=== PATIENT | female | born 1960 | race Caucasian/White ===

== ENCOUNTER 2023-10-31 12:51 | Outpatient (REF) | payer MEDICARE, SELFPAY ==
[2023-10-31 13:53] LABS: C Reactive Protein 0.59 mg/dL (< or = 0.50)
[2023-10-31 14:16] LABS: Erythrocyte Sedimentation Rate 18 MM/HR (0-20)
== END 2023-10-31 12:52 | disposition home or self-care (01) ==
LOC: HO.LAB 12:51
PROVIDERS: Visit Provider Registered Nurse
DX: G44.209 Tension-type headache, unspecified, not intractable (principal)
CPT/HCPCS: 36415; 85652; 86140

== ENCOUNTER 2024-10-16 11:04 | Outpatient (AMB) | payer MEDICARE, SELFPAY ==
--- OUTSIDE RECORDS SUMMARY | 2024-10-16 12:04 | XMS_ITS | Clinical Summary ---
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 0 10/25/2019 Active albuterol (PROVENTIL) (2.5 MG/3ML) 0.083% nebulizer solution Inhale 3 mL (2.5 mg total) into the lungs. 0 05/17/2022 Active amitriptyline (ELAVIL) tablet 25 mg 0 03/24/2021 Active amLODIPine (NORVASC) tablet 5 mg Take 1 tablet (5 mg total) by mouth daily. for 30 days 0 08/15/2022 Active aspirin 81 MG EC tablet Take 1 tablet (81 mg total) by mouth. 0 10/26/2019 Active atorvastatin (LIPITOR) tablet 40 mg Take 1 tablet (40 mg total) by mouth daily. 0 08/15/2022 Active buPROPion (WELLBUTRIN SR) 150 MG 12 hr tablet Take 1 tablet (150 mg total) by mouth 2 (two) times a day. 0 05/17/2022 Active cholestyramine (QUESTRAN) 4 g packet MX AND DRK 1 PACKET PO TID WC 0 07/15/2019 Active cyanocobalamin 1000 MCG tablet Take 1 tablet (1,000 mcg total) by mouth. 0 10/26/2019 Active Flovent HFA 220 MCG/ACT inhaler 1 puff 2 (two) times a day. 0 11/02/2022 Active gabapentin (NEURONTIN) 100 MG capsule Take 1 capsule (100 mg total) by mouth 3 (three) times a day. 0 10/25/2019 Active meclizine (ANTIVERT) 25 MG tablet Take 1 tablet (25 mg total) by mouth. 0 12/12/2013 Active meloxicam (MOBIC) 7.5 MG tablet 0 11/09/2022 Active omeprazole (PriLOSEC) 40 MG capsule Take 1 capsule (40 mg total) by mouth daily. 0 08/15/2022 Active oxyCODONE HCl (ROXICODONE) 10 MG TABS Take 1 tablet (10 mg total) by mouth every 4 (four) hours as needed. 0 10/25/2019 Active TRAZODONE HCL PO Take 50 mg by mouth. 0 11/03/2020 Active varenicline (Chantix Starting Month ) 0.5 MG X 11 & 1 MG X 42 tablet Take 0.5 mg by mouth. 0 05/17/2022 Active Active Problems Problem Noted Date Diagnosed Date Osteoporosis 11/09/2022 Social History Tobacco Use Types Packs/Day Years Used Date Smoking Tobacco: Never Assessed Sex and Gender Information Value Date Recorded Sex Assigned at Female 11/03/2022 2:55 PM EDT Gender Identity Not on file Sexual Orientation Not on file Job Start Date Occupation Industry Not on file Not on file Not on file Last Filed Vital Signs Vital Sign Reading Time Taken Comments Blood Pressure 124/70 11/10/2022 2:04 PM EDT Pulse 90 11/10/2022 2:04 PM EDT Temperature 36 C (96.8 F) 11/10/2022 2:04 PM EDT Respiratory Rate - - Oxygen Saturation 98% 11/10/2022 2:04 PM EDT Inhaled Oxygen Concentration - - Weight 71 kg (156 lb 9.6 oz) 11/10/2022 2:04 PM EDT Height - - Body Mass Index - - Plan of Treatment Health Maintenance Due Date Last Done Comments Hepatitis C Screening 1959 Depression Screening 1971 Preventative Health Evaluation 1977 Cervical Cancer Screening (Pap Smear) 1980 Colon Cancer Screening (Colonoscopy) 2004 Breast Cancer Screening (Mammogram) 2009 Shingrix-Zoster Vaccine (1 o f 2) 2009 COVID-19 Vaccine (4 - 2023-2 5 season) 2023 01/06/2021, 06/07/2020, 05/17/2020 DTap / Tdap / Td (2 - Td or Tdap) 11/19/2023 11/18/2013 Fall Risk Assessment 2024 Osteoporosis Screening (DEXA Scan) 2024 Pneumococcal Vaccine (2 of 2 - PCV) 2024 11/18/2013 Influenza Vaccine (#1) 2024 RSV Adult > 60+ Yrs or (1 - 1-dose 75+ series) 2034 Pneumococcal Vaccine Aged Out 11/18/2013 No long er eligible based on patient's age to complete this topic Hepatitis B Vaccines Aged Out No long er eligible based on patient's age to complete this topic RSV Ped < 20 months Aged Out No longe r eligible based on patient's age to complete this topic 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
--- OUTSIDE RECORDS SUMMARY | 2024-10-16 12:04 | XMS_ITS | Clinical Summary ---
Author Organization [place] [id number] [facility], [facility] Building Address [address] [place], [place] [address], [place] [address] Phone Care Team Providers Care Graphic Design Assistant Name Role Phone Aashish Fishman MD Primary Care Provider Allergies Active Allergy Reactions Criticality Noted Date Comments Bee Venom Protein (Honey Bee) Anaphylaxis,Swelling High 03/11/2019 Moxifloxacin Swelling High 09/27/2013 Swelling Medications meclizine (ANTIVERT) 25 mg tablet Take 1 tablet (25 mg total) by mouth 3 (three) times a day if needed for dizziness. 12/13/19 14 Active meloxicam (MOBIC) 7.5 mg tablet Take 1 tablet (7.5 mg total) by mouth 1 (one) time each day. 11/10/19 23 Active omeprazole (PriLOSEC) [address] capsule Take 1 capsule (40 mg total) by mouth 1 (one) time each day. 08/16/19 23 Active zoledronic acid (RECLAST) 5 mg/100 mL piggyback Infuse 100 mL (5 mg total) into a venous catheter. 08/19/19 23 Active gabapentin (NEURONTIN) 100 mg capsule Take 1 capsule (100 mg total) by mouth 3 (three) times a day. 10/25/19 20 Active aspirin 81 mg chewable tablet GNP Adult Aspirin Low Strength 81 MG chewable tablet 11/07/19 21 Active amitriptyline (ELAVIL) 25 mg tablet 03/24/19 22 Active EPINEPHrine (EpiPen 2-Bo) 0.3 mg/0.3 mL injection Inject 0.3 mL (0.3 mg total) into the thigh if needed for anaphylaxis. Sig - Route: Inject 0.3 mg into the muscle as needed (allergic reaction). 1 each 1 05/16/19 25 Active atorvastatin (LIPITOR) 40 mg tabletIndicatio ns:Pure hypercholestero lemia, unspecified Take 1 tablet by mouth once daily 90 tablet 1 07/05/19 25 Active lisinopril-hydr oCHLOROthiazide (PRINZIDE,ZESTO RETIC) 20-25 mg per tablet Take 1 tablet by mouth once daily 90 tablet 1 10/01/19 25 Active albuterol HFA (PROAIR HFA ; PROVENTIL HFA ; VENTOLIN HFA) 90 mcg/actuation inhaler INHALE 2 PUFFS BY MOUTH EVERY 4 (FOUR) HOURS IF NEEDED FOR SHORTNESS OF BREATH OR WHEEZING. 3 each 10/15/19 25 Active lisinopril-hydr oCHLOROthiazide (PRINZIDE,ZESTO RETIC) 20-25 mg per tablet Take 1 tablet by mouth 1 (one) time each day. 08/07/19 24 025 Discontinued albuterol HFA (PROAIR HFA ; PROVENTIL HFA ; VENTOLIN HFA) 90 mcg/actuation inhaler INHALE 2 PUFFS BY MOUTH EVERY 4 (FOUR) HOURS IF NEEDED FOR SHORTNESS OF BREATH OR WHEEZING. 18 g 1 07/13/19 25 025 Discontinued Active Problems Problem Noted Date Diagnosed Date Osteopenia, unspecified location 06/11/2024 Asthma-COPD overlap syndrome ([facility] V24, [facility] V28) 10/12/2021 Overview (11/07/2023): Last Assessment & Plan: Continue with the use of Flovent 110 mcg 1 puff twice a day Continue with albuterol as needed Advised to quit smoking Prediabetes 02/04/2021 Feces incontinence 11/03/2020 Depression 11/03/2020 Lumbar compression fracture ([facility] V24, [facility] V28) 10/20/2019 Overview (11/07/2023): L-1 compression fx. Aphthous ulcer 03/11/2019 Pain in joint 03/11/2019 Absence of both cervix and uterus, acquired 08/2019 RLS (restless legs syndrome) 03/24/2014 Osteopenia 10/21/2013 Hypertension 09/27/2013 Hypercholesteremia 09/27/2013 Asthma exacerbation 09/27/2013 Overview (11/07/2023): Last Assessment & Plan: Patient has symptoms compatible with an episode of asthma exacerbation. I do agree that at this point antibiotics and prednisone are necessary. I instructed her in how to use the inhaler. I will see her back in 6 weeks to reassess treatment and do a pulmonary function test. Encounters Date Type Department Care Team Description 10/07/2024 Telephone Lung Screening Program - [address] [place] [address] Enma Fonseca [place] Appointment (1st Notification) from Last 3 Months Immunizations Name Administration Dates Next Due Influenza Quadravalent, MDCK , 0.5ml, preservative free (Flucelvax) 6mo and older 01/30/2023 Influenza trivalent, 0.5mL (Fluad) 65yo and olde r 04/09/2024 Influenza trivalent, 0.5mL, preservative free (Fluarix; FluLaval; Fluzone) ages 6mo and older (Afluria) 3 years and older 12/31/2019,11/11/2014 Pfizer SARS-CoV-2 COVID-19, mRNA, LNP-S, preservative free 01/06/2021 Pneumococcal polysaccharide 23 valent (Pneumovax 23) 2yo and older 11/18/2013 Tdap Tetanus diptheria acell ular pertussis (Boostrix; Adacel) 7yo and older 04/09/2024,11/18/2013 Surgical History Surgery Date Site/Laterality Comments CHOLECYSTECTOMY PROCEDURE: HISTORICAL CHOLECYSTECTOMY APPENDECTOMY PROCEDURE: WA APPENDECTOMY TONSILLECTOMY PROCEDURE: HISTORICAL TONSILLECTOMY HYSTERECTOMY PROCEDURE: HISTORICAL TOTAL HYSTERECTOMY WITH BSO WISDOM TOOTH EXTRACTION PROCEDURE: HISTORICAL WISDOM TEETH EXTRACTION HAND SURGERY PROCEDURE: HISTORICAL HAND SURGERY; COMMENT: CTS bilateral release STOMACH SURGERY PROCEDURE: WA UNLISTED PROCEDURE STOMACH; COMMENT: tummy tuck OTHER SURGICAL HISTORY PROCEDURE: WA EXC B9 LESION MRGN XCP SK TG T/A/L 0.5 CM/<; COMMENT: R elbow tumor OTHER SURGICAL HISTORY 09/03/12 PROCEDURE: OUTSIDE MAMMO; COMMENT: US bilat left BIRADS right BIRADS 1 Medical History Medical History Date Comments Hypertension DX:Hypertension Asthma DX:Asthma Osteoporosis DX:Osteoporosis Hypercholesteremia DX:Hyperchole steremia Osteopenia 10/21/2013 DX:Osteopenia Family History Medical History Relation Name Comments Other: bone cancer Brother 1 Alzheimer's disease Mother Other cancer Paternal Grandfather Breast cancer Sister 1 Colon cancer Neg Hx Ovarian cancer Neg Hx Uterine cancer Neg Hx Relation Name Status Comments Brother 1 Brother 2 Alive x 3 Brother 3 x 2 Daughter Alive x 2 Father Maternal Grandfather Maternal Grandmother Mother Paternal Grandfather Paternal Grandmother Sister 1 Sister 2 Alive x 4 Sister 3 x 2 Son Alive x 1 Social History Tobacco Use Types Packs/Day Years Used Date Smoking Tobacco: Every Day Smokeless Tobacco: Never Tobacco Cessation:Ready to Q uit: Not Asked; Counseling Given: Not Answered Alcohol Use Standard Drinks/Week Comments No 0 (1 standard drink = 0.6 oz pur e alcohol) Comments No Sex and Gender Information Value Date Recorded Sex Assigned at Female 06/11/2024 12:56 PM EDT Legal Sex Female 3:12 PM EST Gender Identity Female 06/11/2024 12:56 PM EDT Sexual Orientation Choose not to disclose 2024 12:56 PM EDT Obstetrics History Para Term AB IAB SAB Ectopic Multiple Livin g Live Births 3 3 3 3 Date Outcome GA Total Labor Labor/2nd/3rd Weight Sex Type Anes PTL Chaya A1 A5 Name Clin Term Term Term Last Filed Vital Signs Vital Sign Reading Time Taken Comments Blood Pressure 141/75 06/11/2024 1:05 PM EDT Pulse 72 06/11/2024 1:05 PM EDT Temperature 36.4 C (97.5 F) 06/11/2024 1:05 PM EDT Respiratory Rate 18 06/11/2024 1:05 PM EDT Oxygen Saturation 100% 06/11/2024 1:05 PM EDT Inhaled Oxygen Concentration - - Weight 64.8 kg (142 lb 12.8 oz) 06/04/2024 9:45 AM EDT Height 152.4 cm (5') 06/04/2024 9:45 AM EDT Body Mass Index 27.89 06/04/2024 9:45 AM EDT Plan of Treatment Upcoming Encounters Date Type Department Care Team (Late st Contact Info) Description 10/18/2024 10:45 AM EDT [facility] [address] [place] [address] Jung Nina PA [address] [place] [address] 10/30/2024 7:30 AM EDT Appointment [facility] CT Scan [address] [place] [phone] 11/22/2024 2:45 PM EDT Appointment Bone Density - [facility] [address] [place] [address] 06/11/2025 1:00 PM EDT Appointment [facility] [address] [facility] [address] [place] [address] Health Maintenance Due Date Last Done Comments Zoster Vaccines (1 of 2) 2009 Pneumococcal Vaccine: 50+ Years (2 of 2 - PCV) 11/18/2014 11/18/2013 RSV Immunization Adult Patients (1 - Risk 60-74 years 1-dose series) 2019 COVID-19 Vaccine ( season) 2023 01/06/2021, 06/07/2020, 05/17/2020 Lung Cancer Screening (Low Dose CT) 10/25/2024 10/26/2023, 10/25/2023, 10/26/2022 Influenza Vaccine (#1) 2024 , 01/30/2023, 12/31/2019, Additional history exists Medicare Annual Wellness Visit 04/09/2025 04/09/2024 Social Influencers of Health Screening 04/09/2025 04/09/2024 Hypertension/CHF/CAD Annual BMP Blood Test 06/04/2025 06/04/2024, 05/09/2024, 05/09/2024, Additional history exists Falls Risk Assessment 06/11/2025 06/11/2024, 025 Breast Cancer Screening 04/10/2026 04/10/2024, 05/25 Colorectal Cancer Screening: Colonoscopy 04/18/2029 04/18/2019, 04/18/2019 Cholesterol Screening (Lipid Panel) 05/09/2029 05/09/2024, 08/02/2023, 08/02/2023 Osteoporosis Screening (Bone Density Screening) 08/02/2032 08/02/2022 DTaP,Tdap,and Td Vaccines (3 - Td or Tdap) 04/09/2034 04/09/2024, 11/18/2013 Hepatitis C Screening Completed 02/04/2021, 021 Depression Screening Completed 04/09/2024, 08/02/19 24 HIB Vaccines Aged Out No longer eligi ble based on patient's age to complete this topic HPV Vaccines Aged Out No longer eligi ble based on patient's age to complete this topic Hepatitis A Vaccines Aged Out No long er eligible based on patient's age to complete this topic Hepatitis B Vaccines Aged Out No long er eligible based on patient's age to complete this topic IPV Vaccines Aged Out No longer eligi ble based on patient's age to complete this topic MMR Vaccines Aged Out No longer eligi ble based on patient's age to complete this topic Meningococcal ACWY Vaccine Aged Out N o longer eligible based on patient's age to complete this topic Meningococcal B Vaccine Aged Out No l onger eligible based on patient's age to complete this topic RSV Immunization Patients Under 20 months Aged Out No longer eligible based on patient's age to complete this topic Varicella Vaccines Aged Out No longer eligible based on patient's age to complete this topic Procedures Procedure Name Priority Date/Time Associated Diagnosis Comments CREATININE, SERUM Routine 06/04/2024 11: 02 AM EDT Osteopenia, unspecified location LIPID PANEL WITH REFLEX TO DIRECT LDL Routine 05/09/2024 1:31 PM EST Hypercholesteremia MG MAMMO DIGITAL SCREENING W JORDAN BILAT Routine 04/10/2024 1:38 PM EST Encounter for screening mammogram for malignant neoplasm of breast CT LUNG SCREENING LOW DOSE Routine 10/26/2023 11:11 AM EDT Encounter for screening for malignant neoplasm of respiratory organs DEPRESSION SCREENING Routine 08/02/2023 DXA BONE DENSITY STUDY 1+ SITS AXIAL SKEL Routine 08/02/2022 10:57 AM EDT Age-related osteoporosis without current pathological fracture HEPATITIS C SCREENING Routine 02/04/2021 COLONOSCOPY Routine 04/18/2019 from Last 3 Months or Most Recently Relevant to Health Maintenance Results * Creatinine, Serum (06/04/2024 11:02 AM EDT) Creatinine 0.84 0.50 - 1.10 mg/dL LAB CHEMISTRY METHOD 06/04/2024 4:52 PM EDT [facility] eGFR 77 >=60 mL/min/1. 73m2 LAB CHEMISTRY METHOD 06/04/2024 4:52 PM EDT [facility] Comment:Calculation based on the Chronic Kidney Disease Epidemiology Collaboration (CKD-EPI) equation refit without adjustment for race. Blood Venous blood specimen / Unknown Venipuncture / Unknown 06/04/2024 11:02 AM EDT 06/04/2024 11:02 AM EDT us Beth Levi MD LAB BLOOD ORDERABLES Final Resul t [facility] [address] [place] [address], [place] [phone] * (ABNORMAL) Lipid panel with reflex to direct LDL (05/09/2024 1:31 PM EST) Cholesterol 122 0 - 200 mg/dL LAB CHEMISTRY METHOD 05/09/2024 4:55 PM EST [facility] Triglycerides 218(H) 0 - 150 mg/dL LAB CHEMISTRY METHOD 05/09/2024 4:55 PM EST [facility] HDL 35(L) >=40 mg/dL LAB CHEMISTRY METHOD 05/09/2024 4:55 PM EST [facility] LDL Calculated 43 0 - 100 mg/dL LAB CHEMISTRY METHOD 05/09/2024 4:55 PM EST [facility] VLDL Cholesterol Moises 43.6 mg/dL LAB CHEMISTRY METHOD 05/09/2024 4:55 PM EST [facility] Non HDL Chol. (LDL+VLDL) 87 <145 mg/dL LAB CHEMISTRY METHOD 05/09/2024 4:55 PM EST [facility] Chol/HDL Ratio 3.5 0.0 - 4.4 LAB CHEMISTRY METHOD 05/09/2024 4:55 PM EST [facility] Blood Venous blood specimen / Unknown Venipuncture / Unknown 05/09/2024 1:31 PM EST 05/09/2024 1:31 PM EST Aashish Fishman MD LAB BLOOD ORDERABLES Final Resu lt [facility] [address] [place] [address], [place] [phone] * MG Mammo Digital Screening w Jordan bilat (04/10/2024 1:38 PM EST) Anatomical Region Laterality Modality Breast Bilateral Mammography 04/11/2024 8:54 AM EST Impressions 04/11/2024 8:55 AM EST No mammographic evidence of malignancy. BREAST DENSITY: B - There are scattered areas of fibroglandular density. BI-RADS CATEGORY: 1 - NEGATIVE RECOMMENDATION: Screening bilateral mammogram is recommended in 1 year. MAMMO LOCATION: [facility], [address] [place] [address], [phone], . -------- FINAL REPORT -------- Dictated By: Ronda Christy Dictated Date: 04/11/2024 08:54 ET Assigned Physician: Ronda Christy Reviewed and Electronically Signed By: Ronda Christy Signed Date: 04/11/2024 08:55 ET Workstation ID: [id number] Transcribed By: Self Edit Transcribed Date: 04/11/2024 08:54 ET Narrative 04/11/2024 8:55 AM EST EXAM: Screening Mammogram CLINICAL: 64 years old, Female, routine annual exam. COMPARISON: 08/23/2019 and 12/11/2017 TECHNIQUE: Bilateral MLO and CC views were obtained digitally with 3-D mammogram (digital breast tomosynthesis). Computer-aided detection was utilized in evaluation of this exam (CAD). FINDINGS: No new suspicious mass, architectural distortion, or suspicious calcifications. Procedure Note Ronda Christy MD - 04/11/2024 EXAM: Screening Mammogram CLINICAL: 64 years old, Female, routine annual exam. COMPARISON: 08/23/2019 and 12/11/2017 TECHNIQUE: Bilateral MLO and CC views were obtained digitally with 3-Dmammogram (digital breast tomosynthesis). Computer-aided detection wasutilized in evaluation of this exam (CAD). FINDINGS: No new suspicious mass, architectural distortion, or suspiciouscalcifications. IMPRESSION: No mammographic evidence of malignancy. BREAST DENSITY: B - There are scattered areas of fibroglandular density. BI-RADS CATEGORY: 1 - NEGATIVE RECOMMENDATION: Screening bilateral mammogram is recommended in 1 year. MAMMO LOCATION: [facility], [address] [place] [address], [phone], . -------- FINAL REPORT -------- Dictated By: Ronda Christy Dictated Date: 04/11/2024 08:54 ET Assigned Physician: Ronda Christy Reviewed and Electronically Signed By: Ronda Christy Signed Date: 04/11/2024 08:55 ET Workstation ID: [id number] Transcribed By: Self Edit Transcribed Date: 04/11/2024 08:54 ET us Aashish Fishman MD IMG BI PROCEDURES Final Result * CT LUNG SCREENING LOW DOSE (10/26/2023 11:11 AM EDT) Anatomical Region Laterality Modality Computed Tomogra phy 10/25/2023 7:35 AM EDT Narrative 10/26/2023 11:11 AM EDT [facility] Diagnostic Imaging Department [address] [place] [id number] Patient: MAGALI MILLS /Age/Sex: 1960 - 63 - F Unit#: [id number] Location/Status: SPDICATLS/REG CLI Mnemonic[facility] Ordering Physician: ARTI ARMENDARIZ MD CT Lung Screening Low Dose - 10/25/23746 Report Status:Signed PROCEDURE: CT chest lung cancer screening low dose examination. INDICATION: CT lung screening. TECHNIQUE: Chest CT without intravenous contrast was performed. Low-dose examination was performed. Reformatted images were evaluated. DOSE: CTDIvol: 3.2mGy. Total exam DLP: 105.5mGy-cm COMPARISON: CT chest October 2022 FINDINGS: NODULES: Several small calcified benign appearing nodules are noted and appears stable. A 3 mm nodule in the lingula could be partially calcified and appears stable as well. LUNGS: Minimal emphysematous changes. OTHER: Limited views of the upper abdomen appear normal. Mediastinum appears within normal limits. Coronary atherosclerotic disease. Atherosclerotic disease of the aorta without aneurysm. Mild degenerative changes in the thoracic spine. Stable compression of L1 vertebral body. IMPRESSION: Stable examination. Lung-RADS 2. Follow up examination is advised in one year. Dictating Physician: EAMON DUNN MD Electronically Signed by: EAMON DUNN MD Dic Date/Time: 10/26/23 1107 Sign date/Time: 10/26/23 1111 Procedure Note Eamon Dunn MD - 12/20/2023 [facility] Diagnostic Imaging Department [address] [place] [id number] Patient: MAGALI MILLS /Age/Sex: 1960 - 63 - F Unit#: [id number] Location/Status: SPDICATLS/REG CLI Mnemonic/Ordering Site: [facility] Ordering Physician: ARTI ARMENDARIZ MD CT Lung Screening Low Dose - 10/25/23 - 0747 Report Status:Signed PROCEDURE: CT chest lung cancer screening low dose examination. INDICATION: CT lung screening. TECHNIQUE: Chest CT without intravenous contrast was performed.Low-dose examination was performed. Reformatted images were evaluated. DOSE: CTDIvol: 3.2mGy. Total exam DLP: 105.5mGy-cm COMPARISON: CT chest October 2022 FINDINGS: NODULES: Several small calcified benign appearing nodules are noted andappears stable. A 3 mm nodule in the lingula could be partially calcified andappears stable as well. LUNGS: Minimal emphysematous changes. OTHER: Limited views of the upper abdomen appear normal. Mediastinumappears within normal limits. Coronary atherosclerotic disease.Atherosclerotic disease of the aorta without aneurysm. Mild degenerative changes in the thoracic spine. Stable compression ofL1 vertebral body. IMPRESSION: Stable examination. Lung-RADS 2. Follow up examination is advised in one year. Dictating Physician: EAMON DUNN MD Electronically Signed by: EAMON DUNN MD Dic Date/Time: 10/26/23 1107 Sign date/Time: 10/26/23 1111 Arti Armendariz MD IMG CT PROCEDURES Final Result * Depression Screening (08/02/2023) Depression Screening abstracted Historical Provider HEALTH MAINTENANCE Final Result * DXA BONE DENSITY STUDY 1+ SITS AXIAL SKEL (08/02/2022 10:57 AM EDT) Anatomical Region Laterality Modality Bone Densitometr y 07/08/2022 10:0 3 AM EDT Narrative 08/02/2022 9:16 PM EDT BONE DENSITY SCAN (DEXA): FINDINGS: Lumbar Spine T-score is -0.9. (SD relative to 20-29 y/o adult) Z-score is 0.7. (SD relative to age matched peers) This is considered normal by WHO criteria. Left Hip T-score is -1.9. Z-score is -0.6. This is considered osteopenia by WHO criteria. Comparison exam(s): None. IMPRESSION: IMPRESSION: Osteopenia by WHO criteria. The [facility] Department of Internal Medicine recommends using National Osteoporosis Foundation (NOF) guidelines in treatment decisions related to osteoporosis. NOF guidelines suggest considering treatment for postmenopausal women and men aged 50 or older presenting with the following: History of hip or vertebral fracture. T-score = -2.5 (DXA) at the femoral neck, total hip, or spine, after appropriate evaluation to exclude secondary causes. Low bone mass (T-score between -1.0 and -2.5 at the femoral neck or spine) AND a 10-year probability of a hip fracture = 3% OR a 10-year probability of a major osteoporosis-related fracture = 20% based on the [place]-adapted WHO algorithm Please note that all treatment decisions require clinical judgment and consideration of individual patient factors, including patient preferences, co-morbidities, previous drug use, risk factors not captured in the FRAX model (e.g., frailty, falls, vitamin D deficiency, increased bone turnover, interval significant decline in bone density) and possible under- or over-estimation of fracture risk by FRAX. Optional alternative screening schedule based on vangie Hannon., [facility] March 24, 2011 for patients with osteopenia (based on hip BMD T-score) is as follows: * advanced osteopenia (T scores -2.00 to -2.49), BMD testing every year * moderate osteopenia (T scores -1.50 to -1.99), BMD testing every 5 years mild osteopenia or normal BMD (T scores -1.50 and higher), BMD testing every 15 years Procedure Note Ronda Christy MD - 04/11/2023 BONE DENSITY SCAN (DEXA): FINDINGS: Lumbar Spine T-score is -0.9. (SD relative to 20-29 y/o adult) Z-score is 0.7. (SD relative to age matched peers) This is considered normal by WHO criteria. Left Hip T-score is -1.9. Z-score is -0.6. This is considered osteopenia by WHO criteria. Comparison exam(s): None. IMPRESSION: IMPRESSION: Osteopenia by WHO criteria. The [facility] Department of Internal Medicine recommendsusing National Osteoporosis Foundation (NOF) guidelines in treatment decisions related toosteoporosis. NOF guidelines suggest considering treatment for postmenopausal women and menaged 50 or older presenting with the following: History of hip or vertebral fracture. T-score = -2.5 (DXA) at the femoral neck, total hip, or spine, afterappropriate evaluation to exclude secondary causes. Low bone mass (T-score between -1.0 and -2.5 at the femoral neck or spine)AND a 10-year probability of a hip fracture = 3% OR a 10-year probability of a majorosteoporosis-related fracture = 20% based on the [place]-adapted WHO algorithm Please note that all treatment decisions require clinical judgment andconsideration of individual patient factors, including patient preferences, co- morbidities,previous drug use, risk factors not captured in the FRAX model (e.g., frailty, falls, vitaminD deficiency, increased bone turnover, interval significant decline in bone density) andpossible under- or over-estimation of fracture risk by FRAX. Optional alternative screening schedule based on christine Hannon al., NEJMJanuary 2011 for patients with osteopenia (based on hip BMD T-score) is as follows: * advanced osteopenia (T scores -2.00 to -2.49), BMD testing every year * moderate osteopenia (T scores -1.50 to -1.99), BMD testing every 5years mild osteopenia or normal BMD (T scores -1.50 and higher), BMD testingevery 15 years Beth Levi MD IMG DXA PROCEDURES Final Result * Hepatitis C Screening (02/04/2021) Pathologist [facility] Hepatitis C Screening abstracted Result [facility] Historical Provider HEALTH MAINTENANCE Final Result * Colonoscopy (04/18/2019) Pathologist [facility] Colonoscopy no interpretation , abstracted Anatomical Region Laterality Modality Other Historical Provider HEALTH MAINTENANCE Final Result from Last 3 Months or Most Recently Relevant to Health Maintenance Insurance [employer] [place]ICAID - [place] Care Teams Graphic Design Assistant Relationship Specialty Start Date End Date Aashish Fishman MD [address] [place] [id number] PCP - General Internal Medicine 03/01/24
--- OUTSIDE RECORDS SUMMARY | 2024-10-16 12:04 | XMS_ITS ---
Author Organization [facility] Care Team Providers Care Membership Counselor Name Role Phone David Vargas Unavailable Unavailable Allergies and adverse reactions Code CodeSystem Substance Reaction Severity StartDate Concern Status Bees Unknown Unknown active Care Team Name Role Address Phone Organization Dates David Vargas PCP [address] [place], [address], [place] (Office): : (Pager): [facility] 10/25/2019 - 11/08/2019 Mental Status Section Date Assessment Total Score Description 11/08/2019 BIMS 15 cognitively int act CAM 0 No delirium ind icated PHQ-9 00 10/31/2019 BIMS 15 cognitively int act CAM 0 No delirium ind icated PHQ-9 03 minimal depress ion Problems Problem # Description Date of onset Resolved Date Code CodeSystem Concern Status 1 DEFICIENCY OF OTHER SPECIFIED B GROUP VITAMINS 10/25/[address] active 2 ESSENTIAL (PRIMARY) HYPERTENSION 10/25/[address] active 3 GASTRO-ESOPHAGEAL REFLUX DISEASE WITHOUT ESOPHAGITIS 10/25/[address] active 4 HEMIPLEGIA AND HEMIPARESIS FOLLOWING CEREBRAL INFARCTION AFFECTING LEFT NON-DOMINANT SIDE 10/25/[address] active 5 PERSONAL HISTORY OF NICOTINE DEPENDENCE 10/25/[address] active 6 UNSPECIFIED ASTHMA, UNCOMPLICATED 10/25/[address] active 7 WEDGE COMPRESSION FRACTURE OF UNSPECIFIED LUMBAR VERTEBRA, INITIAL ENCOUNTER FOR CLOSED FRACTURE 10/25/[address] active Reason for Referral No Reasons for Referral Entered Social History Social History Observation Description Start Date End Date Code Code System Current Smoking Status Tobacco smoking consumption unknown 720044401 SNOMED CT Sex Assigned At Female 1960 15979-9 [facility] Gender Identity Vital Signs Code Code System Vitals Name Values and Units Timing Information 01254-1 [facility] Pain Level Value=0.0 11/08/2019 9279-1 [facility] Respiratory Rate Value=18.0 Units=/m in 11/08/2019 83887-3 [facility] O2 % BldC Oximetry Value=98.0 Units= % 11/08/2019 8462-4 [facility] Blood Pressure-Diastolic Value=80 Un its=mmHg 11/08/2019 8480-6 [facility] Blood Pressure-Systolic Rpjtu=476 Un its=mmHg 11/08/2019 8310-5 [facility] Body Temperature Value=98.5 Units= F 11/08/2019 8867-4 [facility] Heart rate Value=76.0 Units=/min 06/2019 30950-6 [facility] Weight Femvs=592.8 Units=Lbs 05/2019 8302-2 [facility] Height Value=60.0 Units=Inches 11/01/2019
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
== END 2024-10-16 12:29 | disposition home or self-care (01) ==
LOC: HO.HSM 11:05
PROVIDERS: PCP Internal Medicine Hematology & Oncology; Visit Provider Registered Nurse
DX: R42 Dizziness and giddiness (principal); G44.209 Tension-type headache, unspecified, not intractable; F44.9 Dissociative and conversion disorder, unspecified
CPT/HCPCS: 99214

== ENCOUNTER → 2024-10-16 11:04 | Outpatient (BNVA) | payer MEDICARE, SELFPAY | PROVIDERS: PCP Internal Medicine Hematology & Oncology; Visit Provider Registered Nurse | DX: G44.209 Tension-type headache, unspecified, not intractable (principal); R42 Dizziness and giddiness; F44.9 Dissociative and conversion disorder, unspecified | CPT/HCPCS: 99212 ==